=== PATIENT | female | born 1940 | race Caucasian/White ===

== ENCOUNTER 2019-04-22 08:21 | Inpatient (IN) ==
--- NOTE | 2019-04-15 07:49 | ANES ---
Anesthesia Pre Procedure Eval HOME MEDICATIONS Lisinopril [Zestril] 20 mg PO DAILY 11/21/14 [Last Taken 02/27/19 07:41] Aspirin [Aspirin Enteric Coated] 81 mg PO DAILY 08/13/16 [Last Taken 08/26/16] allopurinol 300 mg tablet 300 mg PO DAILY 01/13/19 [Last Taken Unknown] fluticasone furoate 100 mcg-vilanterol 25 mcg/dose inhalation powder 1 inh IH DAILY 01/13/19 [Last Taken Unknown] gabapentin 100 mg capsule 100 mg PO DAILY 01/13/19 [Last Taken Unknown] montelukast 10 mg tablet 10 mg PO DAILY 01/13/19 [Last Taken Unknown] omeprazole 20 mg capsule,delayed release 20 mg PO DAILY 01/13/19 [Last Taken Unknown] Triamterene 50 mg PO DAILY 01/29/19 [Last Taken 01/29/19] Allergies/Adverse Reactions: Allergies Allergy/AdvReac Type Severity Reaction Status Date / Time No Known Allergies Allergy Verified 03/31/19 11:11 - Planned Procedure Planned Procedure: LT Arthroplasty Total Knee Medication List Reviewed:: Yes Allergies Verified: Yes Medical History (Last Reviewed 04/15/19 @ 07:47 by Nakul Belle CRNA) Asthma, intermittent Onset Date: 1995 Breast cancer Onset Date: 2003 and 1998 DVT (deep venous thrombosis) Onset Date: 10/2014 rt Degenerative joint disease of knee Onset Date: 12/20/11 Gastroesophageal reflux Onset Date: Unknown Hypertension Onset Date: 2007 Right knee pain Onset Date: Unknown Seasonal allergies Onset Date: Unknown Surgical History (Last Reviewed 04/15/19 @ 07:47 by Nakul Belle CRNA) H/O bilateral mastectomy Onset Date: 2003 with reconstruction surgery 1998 also H/O colonoscopy Onset Date: Unknown WNL H/O: hysterectomy Onset Date: 1998 S/P left knee arthroscopy Onset Date: 08/2016 and 10/2010 Family History (Last Reviewed 04/15/19 @ 07:47 by Nakul Belle CRNA) Father CHF (congestive heart failure) Mother CHF (congestive heart failure) Sister Breast cancer Brother Liver cancer Diabetes CHF (congestive heart failure) - Family Anesthesia History Family History:: no untoward family reactions to anesthesia - Airway/Neck/Teeth Within Normal Limits:: Yes Denture Type: Full upper, Full lower Neck Exam: limited range of motion Mallampatti Score: 3 Thyromental (T-M) distance: > 6 cm Mandibulo Hyoid distance: > 3 cm - Respiratory Respiratory History: asthma Respiratory Physical: lungs clear Smoking Status: Never smoker Sleep Apnea currently treated: No Sleep Apnea by current assessment: No - Cardiovascular Cardiac History: hypertension Tolerate Activity: Fair Heart Sounds: S1 & S2, Regular - Gastrointestinal NPO since: instructed npo after mn - Anesthesia Assessment and Plan ASA Class: PS, III Anesthesia Type Plan: Spinal - adductor canal block Planned difficult intubation/equipment available: No
[~2019-04-22 08:21] MED LIST: ISOPROPYL ALCOHOL 480 APPL BTL MC ONE; MORPHINE SULFATE 15 MG TABLET.SA PO PRN; ROPIVACAINE HCL/PF 100 MG, EPINEPHrine 0.2 MG, KETOROLAC TROMETHAMINE 30 MG in NORMAL S... IJ PRN; TRANEXAMIC ACID 1,000 MG in NORMAL SALINE 100 ML IV PRN; ceFAZolin SODIUM 1 GM VIAL IV PRN; ceFAZolin SODIUM 1 GM VIAL ONE
[2019-04-22] MEDS ORDERED: BUPIVACAINE HCL/EPINEPHRINE 50 ML VIAL IJ ONE (08:53)
[2019-04-22] MEDS ORDERED: PROPOFOL VIAL IV ONE (08:54)
[2019-04-22] MEDS ORDERED: MIDAZOLAM HCL/PF 5 MG/ML VIAL ONE (08:54)
[2019-04-22] MEDS ORDERED: NORMAL SALINE 20 ML VIAL ONE (08:54)
[2019-04-22] MEDS ORDERED: BUPIVACAINE HCL/PF 10 ML VIAL ONE (08:56)
[2019-04-22] MEDS: RINGER'S SOLUTION,LACTATED 1,000 ML IV PRN ×2 (09:25→10:20)
[2019-04-22] MEDS ORDERED: ZOLPIDEM TARTRATE 5 MG TABLET PO PRN (11:01)
[2019-04-22] MEDS ORDERED: MAG HYDROX/ALUMINUM HYD/SIMETH 30 ML UDC PO PRN (11:01)
[2019-04-22] MEDS ORDERED: ACETAMINOPHEN 500 MG TABLET PO PRN (11:01)
[2019-04-22] MEDS ORDERED: MAGNESIUM HYDROXIDE 30 ML UDC PO PRN (11:01)
[2019-04-22] MEDS ORDERED: diphenhydrAMINE HCL 50 MG/ML VIAL IV PRN (11:01)
[2019-04-22] MEDS ORDERED: ONDANSETRON HCL/PF 2 MG/ML VIAL IV PRN (11:01)
[2019-04-22] MEDS ORDERED: DEXTROSE 5%-LACTATED RINGERS 1,000 ML IV PRN (11:01)
[2019-04-22] MEDS ORDERED: MORPHINE SULFATE 2 MG/ML DISP.SYRIN IV PRN (11:01)
--- NOTE | 2019-04-22 11:05 | OR ---
Operative Report - Dictated Report Narrative: Date: 04/22/2019 Preoperative diagnosis: Left knee degenerative joint disease. Postoperative diagnosis: Left knee degenerative joint disease. Procedure: Left total knee arthroplasty. Surgeon: Abel Bryant M.D. Cigar Maker: Margarito Hart PA-C (provided and essential set of skilled, educated hands that assisted with transfer, positioning, prepping, draping, manipulation, retraction, placement of jigs, injection, insertion of implants, irrigation, closure wounds, and dressings all of which could not be performed by the available surgical crew) Anesthesia: Spinal with regional block and local periarticular joint injection. Complications: None Specimens: Bone. Estimated blood loss: Minimal. Tourniquet time: 80 Minutes at 325 millimeters of mercury. Retained implants: Depuy Attune size 6 narrow left lugged cemented posterior stabilized femoral component. Size 5 fixed-bearing cemented tibial platform. 6 by 6 millimeter posterior stabilized cross-linked tibial insert. 38 millimeter medialized patella button. Indications: Mrs. Coates is a 78-year-old female who has had longstanding left knee pain and arthrosis. This patient was followed in my clinic for period of time with significant complaints of left knee pain consistent with arthritic changes. She had failed conservative measures including, but not limited to, activity modification, passage of time, medications, and other conservative measures. Patient wished to proceed with surgical treatment. The risks, benefits, and alternatives were discussed in clinic. The risks of , blood clots, bleeding, infection, nerve/tendon blood vessel/ injury, malposition of components, intraoperative fracture, postoperative limited range of motion, persistent pain, failure of components, and need for additional procedures. Patient wished to proceed consent was obtained after answering all questions. Procedure: After marking the correct extremity on the floor, the patient was taken to the operating room. A timeout was performed. IV antibiotics consisting of Ancef were administered prior to the procedure. A regional followed by spinal anesthetic was induced by anesthesia, per my request, on the operative table with all bony prominences well-padded. Cifuentes catheter was placed, and a bump was placed under the operative side buttock. SCDs and SALMA hose were utilized on the nonoperative leg. A well-padded tourniquet was applied to the operative thigh. The operative leg was then pre-scrubbed with alcohol, prepped, and draped in a standard sterile fashion. After exsanguinating the extremity with an Esmarch bandage, the tourniquet was inflated. After marking out the anterior knee for standard incision centered over the patella, the skin was incised and dissected down to the joint retinaculum. The joint retinaculum was marked out as well as the horizontal axis of the patella, and a standard medial parapatellar arthrotomy was then made. The most proximal aspect of the quadriceps tendon and the patella tendon insertion were protected from release. A partial synovectomy was performed as well as a resection of the infrapatellar fat pad. The distal femoral fat pad proximal to the trochlea was also resected using cautery. The soft tissues were elevated off the medial as pect of the proximal tibia using a Holman elevator ensuring that we did not transect the medial collateral ligament. Upon initial evaluation range of motion was approximately 0 degrees to 130 degrees of flexion. There were signs of advanced arthrosis in the medial and patellofemoral greater than lateral joint spaces. There were large marginal osteophytes which were removed with a rongeur. The knee was hyperflexed and the patella was tucked laterally. Protecting the surrounding soft tissues with Homans, an entry drill was placed down the femoral canal using Whitesides line for guidance into the entry point. The intramedullary femoral alignment elida was utilized in order to cut the distal femur in 5 degrees of valgus resecting 10 millimeters of bone. Next the distal femur was sized to a size 6. A posterior referencing guide was utilized to place the distal femoral cutting block in 3 degrees of external rotation. This was pinned into place. The rotation was confirmed both visually and based on anatomic landmarks. The 4 in 1 cutting jig of the appropriate size was utilized in order to make all bony cuts. The arabella wing was used to ensure no notching. Retractors were utilized in order to protect surrounding soft tissues. This cut did not result in any excessive notching. We then cut the box centered over the distal femur. This allowed for resection of the anterior and posterior cruciate ligaments. I then turned my attention to the preparation of the tibia. Using an extra medullary tibial alignment elida, 3 millimeters of bone was resected off the medial articular surface. This was made perpendicular to the mechanical axis of the joint with the alignment elida centered over the ankle mortise. The alignment elida was checked and was noted to be parallel to the mec hanical axis, centered over the medial one third of the tibial tubercle, paralleling the anterior surface of the tibia. We then turned our attention to the remaining meniscus and soft tissues. These were removed while protecting the surrounding ligaments and soft tissues. The marginal osteophytes off the anterior, posterior, medial, lateral aspects of the femur and tibia were removed. The tibia was sized out to a size 5. Next the tibia was drilled and punched in an externally rotated position. Next the trial femur and a series of tibial inserts were utilized in order to allow for full extension and maximal flexion. It was found that a 6 millimeter insert gave the best range of motion and stability at multiple flexion points as well as at full extension there was less than 2 mm of gapping both medially and laterally. There is minimal anterior translation with the knee at 90 degrees of flexion and no signs of being able to dislocate the knee. The patella was then prepared. The initial thickness was 25 millimeters. This was reamed down to 15 millimeters parallel to the anterior surface of the patella. It was sized out to a size 38 medialized patella button. This was then drilled and trialed. Without any medial restraint the patella tracked appropriately and did not sublux or dislocate. At this point, it was felt these were the appropriate sized implants, and all trials were removed. The standard periarticular joint injection consisting of ropivacaine, Toradol, and epinephrine were injected into the periarticular joint tissues. The bony surfaces were thoroughly irrigated with a pulsatile-suction saline irrigation device. A bone plug from the prior resected anterior chamfer cut was placed into the drill hole at the distal femur. The bony surfaces were then dried in preparation for placement of the implants. The cement was vacuum mixed per the counter manager's instructions. The cement was placed on the dry bony surfaces and posterior aspect of the implants. The implants were impacted into place, removing all extruded cement. At this point anesthesia administered tranexamic acid per protocol intravenously. The knee was placed in extension with axial loading with the trial insert while the cement cured. Once the cement cured, all remaining extruded cement was removed. The knee was placed through a range of motion with the trial insert to ensure appropriate range of motion and stability. Final range of motion was approximately 0 to 130 degrees. The knee was again thoroughly irrigated with pulsatile saline lavage. The final polyethylene insert was then impacted into place ensuring no retained soft tissues. The remaining periarticular joint injection was injected. A medium Hemovac drain was placed exiting superior laterally. The knee was then placed over a triangle and the arthrotomy was closed with interrupted #1 Vicryl after thoroughly irrigating the joint. The deep and subcutaneous tissues were closed with interrupted 0 and 3-0 Vicryl respectively. Skin was closed with a running subcutaneous 3-0 Monocryl and Prineo Dermabond dressing. 4 x 4's, Sof-Rol, and a full leg Vargas wrap were applied. All sponge, needle, blade, and instrument counts were correct prior to closing the wounds. Postoperative condition: The patient was awoken and transferred to the postanesthesia care unit in stable condition. Plan is to be admitted to the inpatient medical/surgical floor postoperatively for 24 hours of IV antibiotics, physical therapy, occupational therapy, and medical comanagement. Patient will be weightbearing as tolerated with range of motion as tolerated. DVT prophylaxis will be with SCDs, SALMA hose, and pharmacological anticoagulation. Anticipated hospital stay is approximately 1-3 days.
--- NOTE | 2019-04-22 11:26 | ANES ---
Post Anesthesia Discharge - Transfer of Care Transfer of Care handoff given to nurse: Yes - Discharge from PACU Discharge from PACU when meets criteria: Yes
--- NOTE | 2019-04-22 11:30 | ANES ---
Anesthesia Procedure Note Procedure Note: ANESTHESIA PROCEDURE NOTE Date of procedure: 04/22/2019. Time of procedure: 09 35. Performed by: Faustino Belle CRNA Watch Repairer Apprentice: Abigail Aguirre RN . Preprocedure diagnosis: Left knee DJD. Post procedure diagnosis: Same. Procedure: Ultrasound-guided left adductor canal block for postoperative anal gesia Indications: Postoperative analgesia. Findings: Patient brought to operating room #3, sedated, and given a spinal anesthetic. Patient's left inner thigh was prepped with ChloraPrep. Ultrasound utilized to identify the adductor canal. A 20-gauge 4 inch regional block needle was advanced under ultrasound guidance till tip of needle was placed in the adductor canal and just distal to the sartorius muscle. 25 mL of 0.25% Marcaine with epinephrine 1 200,000 was injected with adequate spread of local anesthesia noted. Regional block needle was removed intact. EBL: Minimal. Fluids: N/A. Specimen: N/A. Post procedure condition: The patient tolerated the procedure well. No complications were noted. Thank you for this consultation Faustino Belle CRNA
--- NOTE | 2019-04-22 11:57 | ANES ---
Post Anesthesia Assessment - Vital Signs Vitals: Last Vital Signs Temp 36.6 C 04/22/19 11:35 Pulse 97 04/22/19 11:35 Resp 18 04/22/19 11:35 BP 123/43 04/22/19 11:35 Pulse Ox 97 04/22/19 11:35 Airway Patency: Normal - Mental Status Level Of Consciousness: Awake - Pain Level Pain Score: 0 - N/V Assessment Nausea/Vomiting Presence: None Dehydration:: No
[2019-04-22] MEDS: ceFAZolin SODIUM 1 GM in DEXTROSE 5 % IN WATER 100 ML IV SCH ×4 (13:05→19:39)
[2019-04-22] MEDS: oxyCODONE HCL/ACETAMINOPHEN 1 TAB TABLET PO PRN ×2 (16:06→22:35)
[2019-04-22] MEDS: FLUTICASONE PROPION/SALMETEROL 14 PUFF DISK.W.DEV IH SCH (20:16)
[2019-04-22] MEDS: SENNOSIDES/DOCUSATE SODIUM 1 TAB TABLET PO SCH (20:16)
[2019-04-22] MEDS: MORPHINE SULFATE 15 MG TABLET.SA PO SCH (20:19)
[2019-04-23] MEDS: ceFAZolin SODIUM 1 GM in DEXTROSE 5 % IN WATER 100 ML IV SCH ×2 (01:23)
[2019-04-23] MEDS: oxyCODONE HCL/ACETAMINOPHEN 1 TAB TABLET PO PRN ×3 (04:46→20:24)
[2019-04-23] MEDS: PANTOPRAZOLE SODIUM 20 MG TABLET.DR PO SCH (06:25)
[2019-04-23 06:31] LABS: Hematocrit 31.7 % (37.0-47.0); Hemoglobin 9.8 gm/dL (12.5-16.0); Mean Cell Volume 97.8 fl (78-100); Mean Corpuscular Hemoglobin 30.2 pg (27-31); Mean Corpuscular Hgb Conc 30.9 g/dl (32-36); Mean Platelet Volume 9.7 fl (8-12.5); Platelet Count 252 K/mm3 (150-450); Red Blood Count 3.24 M/mm3 (4.2-5.4); Red Cell Distribution Width 13.2 % (11.5-14.0); White Blood Count 6.4 K/mm3 (4.0-10.5)
[2019-04-23 06:39] LABS: Anion Gap 13.3 mmol/L (6.8-13.8); BUN/Creatinine Ratio 25.5 (9.0-21.6); Carbon Dioxide 27.2 mmol/L (24-32.6); Estimated Creat Clear 27.8; Potassium 4.5 mmol/L (3.4-4.6)
[2019-04-23] MEDS: LISINOPRIL 20 MG TABLET PO SCH (09:48)
[2019-04-23] MEDS: MONTELUKAST SODIUM 10 MG TABLET PO SCH (09:49)
[2019-04-23] MEDS: ALLOPURINOL 300 MG TABLET PO SCH (09:49)
[2019-04-23] MEDS: GABAPENTIN 100 MG CAPSULE PO SCH (09:49)
[2019-04-23] MEDS: MORPHINE SULFATE 15 MG TABLET.SA PO SCH ×2 (09:49→20:19)
[2019-04-23] MEDS: ENOXAPARIN SODIUM 40 MG/0.4 ML SYRG SC SCH (09:49)
[2019-04-23] MEDS: TRIAMTERENE 50 MG PO SCH (09:50)
[2019-04-23] MEDS: FLUTICASONE PROPION/SALMETEROL 14 PUFF DISK.W.DEV IH SCH ×2 (09:50→20:13)
--- NOTE | 2019-04-23 18:09 | PN ---
Subjective - Date and Time Seen Date: 04/23/19 Time: 07:45 Subjective Narrative: Subjective: Reports tolerable pain. Was able to walk in the jensen with therapy. Pain is well-controlled. Voiding without any complications. Tolerating by mouth intake. Denies any nausea or vomiting. Denies calf pain. Slept well. Physical exam: Alert and oriented to person, place and time Left lower extremity: Palpable dorsalis pedis pulse. Sensation grossly intact to light touch. Dressings clean and dry. Able to flex and extend ankle and toes. No excessive drainage. Calf and thigh are soft and nontender. Assessment: Postop day 1 status post left total knee arthroplasty. Plan: Due to the need for pain control, post-operative limited mobility, protection of the surgical site and joint, monitoring of the wound, and the management of chronic medical conditions, she requires continued inpatient care. Continue with physical and occupational therapy weightbearing as tolerated. Continue with anticoagulation. 24 hours postoperative prophylactic antibiotics. Pain co ntrol with goal to rely on oral medications. Continue bowel regimen. Will need 6 weeks with walker or assitive device to protect joint while ambulating during the recovery process. Discharge planning. Discontinue drain and Cifuentes catheter. Objective - Vitals Vitals: Last Vital Signs Temp 36.9 C 04/23/19 13:52 Pulse 95 04/23/19 13:52 Resp 18 04/23/19 13:52 BP 129/62 04/23/19 13:52 Pulse Ox 98 04/23/19 13:52 - Abnormal Lab Findings Abnormal Lab Findings: Abnormal Lab Results 04/23/19 04/23/19 Range/Units 06:28 06:28 RBC 3.24 L (4.2-5.4) M/mm3 Hgb 9.8 L (12.5-16.0) gm/dL Hct 31.7 L (37.0-47.0) % MCHC 30.9 L (32-36) g/dl BUN 37 H (3-23) mg/dL Creatinine 1.45 H (0.4-1.4) mg/dL Est GFR (Non-Af Amer) 37 L (60-130) mL/min BUN/Creatinine Ratio 25.5 H (9.0-21.6) Random Glucose 122 H (70-110) mg/dL Cauti Physician Documentation - Urinary Catheter Management Urethral (Cifuentes) Date of Insertion: 04/22/19 Time of Insertion: 09:45 Date of Removal: 04/23/19 Time of Removal: 06:30 Assessment/Plan - Problems/Diagnosis (1) Status post total left knee replacement Problem: Acute (2) Acute blood loss anemia Problem: Acute (3) HTN (hypertension) Problem: Chronic (4) Hyperlipemia Problem: Chronic (5) GERD (gastroesophageal reflux disease) Problem: Chronic (6) Insomnia Problem: Chronic (7) Gout Problem: Chronic
[2019-04-23] MEDS: SENNOSIDES/DOCUSATE SODIUM 1 TAB TABLET PO SCH (20:13)
[2019-04-24] MEDS: oxyCODONE HCL/ACETAMINOPHEN 1 TAB TABLET PO PRN ×3 (04:55→20:24)
[2019-04-24] MEDS: PANTOPRAZOLE SODIUM 20 MG TABLET.DR PO SCH (06:58)
[2019-04-24] MEDS: GABAPENTIN 100 MG CAPSULE PO SCH (09:30)
[2019-04-24] MEDS: ALLOPURINOL 300 MG TABLET PO SCH (09:30)
[2019-04-24] MEDS: LISINOPRIL 20 MG TABLET PO SCH (09:30)
[2019-04-24] MEDS: MONTELUKAST SODIUM 10 MG TABLET PO SCH (09:30)
[2019-04-24] MEDS: MORPHINE SULFATE 15 MG TABLET.SA PO SCH ×2 (09:31→21:25)
[2019-04-24] MEDS: ENOXAPARIN SODIUM 40 MG/0.4 ML SYRG SC SCH (09:31)
[2019-04-24] MEDS: FLUTICASONE PROPION/SALMETEROL 14 PUFF DISK.W.DEV IH SCH ×2 (09:31→21:25)
[2019-04-24] MEDS: TRIAMTERENE 50 MG PO SCH (09:37)
--- NOTE | 2019-04-24 09:40 | PN ---
Subjective - Date and Time Seen Date: 04/24/19 Time: 09:39 Subjective Narrative: Subjective: Reports tolerable pain. Was able to walk in the jensen with therapy. Voiding without any complications. Tolerating by mouth intake. Denies any nausea or vomiting. Physical exam: Alert and oriented to person, place and time Left lower extremity: Palpable dorsalis pedis pulse. Sensation grossly intact to light touch. Able to flex and extend ankle and toes. No excessive drainage. Calf and thigh are soft and nontender. Assessment: Postop day 2 status post left total knee arthroplasty. Plan: Due to the need for pain control, post-operative limited mobility, protection of the surgical site and joint, monitoring of the wound, and the management of chronic medical conditions, she requires continued inpatient care. Continue with physical and occupational therapy weightbearing as tolerated. Continue with anticoagulation. Pain control with goal to rely on oral medications. Continue bowel regimen. Will need 6 weeks with walker or assitive device to protect joint while ambulating during the recovery process. Discharge planning- due to her home living situation as well as the need for additional specialized therapy she is being transferred to a [facility] facility tomorrow. Objective - Vitals Vitals: Last Vital Signs Temp 37.2 C 04/24/19 07:17 Pulse 90 04/24/19 09:30 Resp 16 04/24/19 07:17 BP 124/73 04/24/19 09:30 Pulse Ox 99 04/24/19 07:17 Cauti Physician Documentation - Urinary Catheter Management Urethral (Cifuentes) Date of Insertion: 04/22/19 Time of Insertion: 09:45 Date of Removal: 04/23/19 Time of Removal: 06:30 Assessment/Plan - Problems/Diagnosis (1) Status post total left knee replacement Problem: Acute (2) Acute blood loss anemia Problem: Acute (3) HTN (hypertension) Problem: Chronic (4) Hyperlipemia Problem: Chronic (5) GERD (gastroesophageal reflux disease) Problem: Chronic (6) Insomnia Problem: Chronic (7) Gout Problem: Chronic
[2019-04-24] MEDS: SENNOSIDES/DOCUSATE SODIUM 1 TAB TABLET PO SCH (21:25)
[2019-04-25] MEDS: oxyCODONE HCL/ACETAMINOPHEN 1 TAB TABLET PO PRN ×2 (03:05→10:10)
[2019-04-25] MEDS: PANTOPRAZOLE SODIUM 20 MG TABLET.DR PO SCH (06:47)
[2019-04-25] MEDS: MORPHINE SULFATE 15 MG TABLET.SA PO SCH (08:29)
[2019-04-25] MEDS: FLUTICASONE PROPION/SALMETEROL 14 PUFF DISK.W.DEV IH SCH (08:29)
[2019-04-25] MEDS: GABAPENTIN 100 MG CAPSULE PO SCH (08:30)
[2019-04-25] MEDS: TRIAMTERENE 50 MG PO SCH (08:30)
[2019-04-25] MEDS: ALLOPURINOL 300 MG TABLET PO SCH (08:30)
[2019-04-25] MEDS: LISINOPRIL 20 MG TABLET PO SCH (08:30)
[2019-04-25] MEDS: MONTELUKAST SODIUM 10 MG TABLET PO SCH (08:30)
--- NOTE | 2019-04-25 08:48 | DS ---
(1) Status post total left knee replacement Problem: Acute (2) Acute blood loss anemia Diagnosis(s): Acute on chronic. Patient's hemoglobin preoperatively was 10.6 g postoperatively on day 1 9.8 g. Asymptomatic and will observe clinically. Problem: Acute (3) HTN (hypertension) Problem: Chronic (4) Hyperlipemia Problem: Chronic (5) GERD (gastroesophageal reflux disease) Problem: Chronic Date of Discharge:: 04/25/19 Hospital Course: Mrs. Coates was admitted to the floor after undergoing left total knee arthroplasty. Tolerated this well. Was admitted to the floor postoperatively for 24 hours of IV antibiotics, pain control, medical comanagement, and occupational and physical therapy. OT and PT were consulted to assist with activities of daily living and ambulation. Was made weightbearing as tolerated with range of motion as tolerated. Pain was initially controlled with IV regimen. This was transitioned to oral once tolerating a by mouth intake. Was resumed on home diet and medications. Had a Cifuentes catheter inserted and the operating room which was discontinued on postoperative day 1. A drain was placed intraoperatively into the knee which was discontinued on postoperative day 1. Lovenox SCD and SALMA hose were utilized for DVT prophylaxis. Vital signs remained stable to the hospital course. Serial labs were obtained which showed a final hemoglobin of 9.8 grams down from preoperative 10.6 g. Her anemia is asymptomatic and will continue to observe clinically. BMP was reviewed and was stable. Physical examination throughout the hospital course showed an extremity that had sensation that was intact to light touch, palpable pulses, a benign wound, motor intact to the toes, ankle, and knee. Knee range of motion was approximately 5 degrees to 70 degrees. Once an oral pain regimen was tolerated and physical therapy goals were met, it was felt that they were stable for discharge to home. Instructions: Continue with weightbearing as tolerated and range of motion as tolerated. It is OK to shower on the wound if it is not draining. If you note any drainage or for comfort you can cover with dry gauze and tape. Change every 2-3 days as needed. Continue with physical therapy. Resume home diet. Report any fever over 101.5 Fahrenheit, uncontrolled pain, increased drainage, foul odor of drainage, new or increased calf pain or shortness of breath, or any other significant complaints. A 325mg dialy aspirin will be started after finishing anticoagulation if not allergic. Continue with SALMA hose on the operative extremity until instructed otherwise. No driving until instructed otherwise. Follow up in approximately 10-14 days. Procedures Performed: see notes below List Procedures: Left total knee arthroplasty Results and Findings: Lab Pending Results 04/23/19 06:28: WBC 6.4, RBC 3.24 L, Hgb 9.8 L, Hct 31.7 L, MCV 97.8, MCH 30.2, MCHC 30.9 L, RDW 13.2, Plt Count 252, MPV 9.7 04/23/19 06:28: Sodium 139, Plasma Sodium 139, Potassium 4.5, Chloride 103, Carbon Dioxide 27.2, Anion Gap 13.3, BUN 37 H, Creatinine 1.45 H, Est GFR (Non- Af Amer) 37 L, BUN/Creatinine Ratio 25.5 H, Random Glucose 122 H, Calcium 9.0 Discharge Location: [facility] Disposition: SNF Condition: Good Discharge Activity: Activity as tolerated, Weight bearing, Other - With wheeled walker Discharge Diet: Low salt [facility] Therapy: Physical Therapy Referrals: Dr. Edd [Other] Abel Bryant MD [Staff Physician] - 05/12/19 1:15 pm Problem Oriented Discharge Instructions to Patient/Family: Total Knee R eplacement, Care After, [id number] Additional Patient Instructions (free text): Pt going to [facility] in [place] at discharge on Saturday04/25/19. Please call them to give report at [phone]. Fax # for discharge information is [phone]. Follow up in the Orthopedic office with Dr. Bryant on SaturdayMay 11 at 1:15p.m. Complete Home Medications List: Complete Home Medication List: Lisinopril [Zestril] 20 mg PO DAILY 11/21/14 Aspirin [Aspirin Enteric Coated] 81 mg PO DAILY 08/13/16 allopurinol 300 mg tablet 300 mg PO DAILY 01/13/19 fluticasone furoate 100 mcg-vilanterol 25 mcg/dose inhalation powder 1 inh IH DAILY 01/13/19 gabapentin 100 mg capsule 100 mg PO DAILY 01/13/19 montelukast 10 mg tablet 10 mg PO DAILY 01/13/19 omeprazole 20 mg capsule,delayed release 20 mg PO DAILY 01/13/19 Triamterene 50 mg PO DAILY 01/29/19 Enoxaparin Sodium [Lovenox] 40 mg SC Q24H #5 disp.syrin 04/25/19 Morphine Sulfate [Ms Contin] 15 mg PO Q12H #10 tablet.sa 04/25/19 Sennosides/Docusate Sodium [Senokot-S] 2 tab PO HS #30 tab 04/25/19 oxyCODONE HCL/ACETAMINOPHEN [Percocet 5 MG/325 MG] 2 tab PO Q4H PRN #56 tab 04/25/19
[2019-04-25] MEDS: ENOXAPARIN SODIUM 40 MG/0.4 ML SYRG SC SCH (10:08)
[2019-04-25 11:24] VITALS: BP 113/80
== END 2019-04-25 11:20 | DRG 470 ==
LOC: MS 08:21 → EDSTATUS 11:30
PROVIDERS: ADMIT Orthopaedic Surgery; ATTEND Orthopaedic Surgery
DX: E78.5 Hyperlipidemia, unspecified; D62 Acute posthemorrhagic anemia; K21.9 Gastro-esophageal reflux disease without esophagitis; M17.12 Unilateral primary osteoarthritis, left knee; I10 Essential (primary) hypertension; J45.30 Mild persistent asthma, uncomplicated
CPT/HCPCS: 36415; 73560; 80048; 85027; 94660; 97110; 97116; 97161; 97165; 97530; 97535

== ENCOUNTER 2019-07-27 06:26 | Inpatient (IN) ==
[~2019-07-27 06:26] MED LIST changes: -ISOPROPYL ALCOHOL 480 APPL BTL MC ONE; -ceFAZolin SODIUM 1 GM VIAL ONE
[2019-07-27] MEDS ORDERED: ceFAZolin SODIUM 1 GM VIAL ONE (06:31)
[2019-07-27] MEDS ORDERED: MIDAZOLAM HCL/PF 1 MG/ML VIAL ONE (06:35)
[2019-07-27] MEDS ORDERED: BUPIVACAINE HCL/EPINEPHRINE/PF 30 ML VIAL IJ ONE (06:35)
[2019-07-27] MEDS ORDERED: PROPOFOL VIAL IV ONE (06:35)
[2019-07-27] MEDS ORDERED: CEFAZOLIN SODIUM/DEXTROSE,ISO 1 GM/50 ML BAG IV PRN (06:38)
--- NOTE | 2019-07-27 07:13 | ANES ---
Anesthesia Pre Procedure Eval Vitals/Labs: Last Vital Signs Temp 36.5 C 07/27/19 06:29 Pulse 75 07/27/19 06:29 Resp 16 07/27/19 06:29 BP 159/69 H 07/27/19 06:29 HOME MEDICATIONS Lisinopril [Zestril] 20 mg PO DAILY 11/21/14 [Last Taken 07/27/19] Aspirin [Aspirin Enteric Coated] 81 mg PO DAILY 08/13/16 [Last Taken 07/27/19] allopurinol 300 mg tablet 300 mg PO DAILY 01/13/19 [Last Taken 07/27/19] fluticasone furoate 100 mcg-vilanterol 25 mcg/dose inhalation powder 1 inh IH DAILY 01/13/19 [Last Taken 07/27/19] gabapentin 100 mg capsule 100 mg PO DAILY 01/13/19 [Last Taken 07/27/19] montelukast 10 mg tablet 10 mg PO DAILY 01/13/19 [Last Taken 07/27/19] omeprazole 20 mg capsule,delayed release 20 mg PO DAILY 01/13/19 [Last Taken 07/27/19] Allergies/Adverse Reactions: Allergies Allergy/AdvReac Type Severity Reaction Status Date / Time No Known Allergies Allergy Verified 07/27/19 06:46 - Planned Procedure Planned Procedure: R TKA Medication List Reviewed:: Yes Allergies Verified: Yes Medical History (Last Reviewed 07/27/19 @ 07:11 by Robel Dietz CRNA) Asthma, intermittent Onset Date: 1995 Breast cancer Onset Date: 2003 and 1998 Cyst of left kidney being monitored with imaging at this time DVT (deep venous thrombosis) Onset Date: 10/2014 rt Degenerative joint disease of knee Onset Date: 12/20/11 Gastroesophageal reflux Onset Date: Unknown Gout Hypertension Onset Date: 2007 Right knee pain Onset Date: Unknown Seasonal allergies Onset Date: Unknown Wears dentures Surgical History (Last Reviewed 07/27/19 @ 07:11 by Robel Dietz CRNA) H/O bilateral mastectomy Onset Date: 2003 with reconstruction surgery 1998 also H/O colonoscopy Onset Date: Unknown WNL H/O: hysterectomy Onset Date: 1998 History of total knee arthroplasty Onset Date: ~04/22/19 Procedure: Left total knee arthroplasty. Dr. Bryant S/P left knee arthroscopy Onset Date: 08/2016 and 10/2010 Family History (Last Reviewed 07/27/19 @ 07:11 by Robel Dietz CRNA) Father CHF (congestive heart failure) Mother CHF (congestive heart failure) Sister Breast cancer Brother Liver cancer Diabetes CHF (congestive heart failure) Daughter Stomach cancer - Family Anesthesia History Family History:: no untoward family reactions to anesthesia, no familial bleeding tendencies, no family history of clotting disorders, no family history of premature - Airway/Neck/Teeth Within Normal Limits:: Yes Teeth Condition: intact Neck Exam: full range of motion Mallampatti Score: 2 Thyromental (T-M) distance: > 6 cm Mandibulo Hyoid distance: > 3 cm - Respiratory Respiratory Physical: lungs clear Smoking Status: Never smoker Sleep Apnea currently treated: No Sleep Apnea by current assessment: No - Cardiovascular Cardiac History: hypertension Tolerate Activity: Poor - currently with walker Heart Sounds: S1 & S2 - Gastrointestinal NPO since: 2399 - Anesthesia Assessment and Plan ASA Class: PS, III Anesthesia Type Plan: Block - adductor canal block for post op pain relief, Spinal
[2019-07-27] MEDS: RINGER'S SOLUTION,LACTATED 1,000 ML IV PRN ×2 (07:30→08:35)
[2019-07-27] MEDS ORDERED: ceFAZolin SODIUM 1 GM VIAL IV ONE (08:00)
--- NOTE | 2019-07-27 09:50 | OR ---
Operative Report - Dictated Report Narrative: Date: 07/27/2019 Preoperative diagnosis: Right knee degenerative joint disease. Postoperative diagnosis: Right knee degenerative joint disease. Procedure: Right total knee arthroplasty. Surgeon: Abel Bryant M.D. Service Cashier: Margarito Hart PA-C (provided and essential set of skilled, educated hands that assisted with transfer, positioning, prepping, draping, manipulation, retraction, placement of jigs, injection, insertion of implants, irrigation, closure wounds, and dressings all of which could not be performed by the available surgical crew) Anesthesia: Spinal with regional block and local periarticular joint injection. Complications: None Specimens: Bone. Estimated blood loss: Minimal. Tourniquet time: 85 Minutes at 300 millimeters of mercury. Retained implants: Depuy Attune size 6 narrow right lugged cemented posterior stabilized femoral component. Size 5 fixed-bearing cemented tibial platform. 6 by 8 millimeter posterior stabilized cross-linked tibial insert. 38 millimeter medialized patella button. Indications: Mrs. Coates is a 78-year-old female who has had longstanding right knee pain and arthrosis. This patient was followed in my clinic for period of time with significant complaints of right knee pain consistent with arthritic changes. She had failed conservative measures including, but not limited to, activity modification, passage of time, medications, and other conservative measures. Patient wished to proceed with surgical treatment. The risks, benefits, and alternatives were discussed in clinic. The risks of , blood clots, bleeding, infection, nerve/tendon blood vessel/ injury, malposition of components, intraoperative fracture, postoperative limited range of motion, persistent pain, failure of components, and need for additional procedures. Patient wished to proceed consent was obtained after answering all questions. Procedure: After marking the correct extremity on the floor, the patient was taken to the operating room. A timeout was performed. IV antibiotics consisting of Ancef were administered prior to the procedure. A regional followed by spinal anesthetic was induced by anesthesia, per my request, on the operative table with all bony prominences well-padded. Cifuentes catheter was placed, and a bump was placed under the operative side buttock. SCDs and SALMA hose were utilized on the nonoperative leg. A well-padded tourniquet was applied to the operative thigh. The operative leg was then pre-scrubbed with alcohol, prepped, and draped in a standard sterile fashion. After exsanguinating the extremity with an Esmarch bandage, the tourniquet was inflated. After marking out the anterior knee for standard incision centered over the patella, the skin was incised and dissected down to the joint retinaculum. The joint retinaculum was marked out as well as the horizontal axis of the patella, and a standard medial parapatellar arthrotomy was then made. The most proximal aspect of the quadriceps tendon and the patella tendon insertion were protected from release. A partial synovectomy was performed as well as a resection of the infrapatellar fat pad. The distal femoral fat pad proximal to the trochlea was also resected using cautery. The soft tissues were elevated off the medial aspect of the proximal tibia using a Holman elevator ensuring that we did not transect the medial collateral ligament. Upon initial evaluation range of motion was approximately 0 degrees to 115 degrees of flexion. There were signs of advanced arthrosis in the medial, lateral, and patellofemoral joint spaces. There were large marginal osteophytes which were removed with a rongeur. The knee was hyperflexed and the patella was tucked laterally. Protecting the surrounding soft tissues with Homans, an entry drill was placed down the femoral canal using Whitesides line for guidance into the entry point. The intramedullary femoral alignment elida was utilized in order to cut the distal femur in 5 degrees of valgus resecting 10 millimeters of bone. Next the distal femur was sized to a size 6. A posterior referencing guide was utilized to place the distal femoral cutting block in 3 degrees of external rotation. This was pinned into place. The rotation was confirmed both visually and based on anatomic landmarks. The 4 in 1 cutting jig of the appropriate size was utilized in order to make all bony cuts. The arabella wing was used to ensure no notching. Retractors were utilized in order to protect surrounding soft tissues. This cut did not result in any excessive notching. We then cut the box centered over the distal femur. This allowed for resection of the anterior and posterior cruciate ligaments. I then turned my attention to the preparation of the tibia. Using an extra medullary tibial alignment elida, 2 millimeters of bone was resected off the medial articular surface. This was made perpendicular to the mechanical axis of the joint with the alignment elida centered over the ankle mortise. The alignment elida was checked and was noted to be parallel to the mechanical axis, centered over the medial one third of the tibial tubercle, paralleling the anterior surface of the tibia. We then turned our attention to the remaining meniscus and soft tissues. These were removed while protecting the surrounding ligaments and soft tissues. The marginal osteophytes off the anterior, posterior, medial, lateral aspects of the femur and tibia were removed. The tibia was sized out to a size 5. Next the tibia was drilled and punched in an externally rotated position. Next the trial femur and a series of tibial inserts were utilized in order to allow for full extension and maximal flexion. It was found that a 8 millimeter insert gave the best range of motion and stability at multiple flexion points as well as at full extension there was less than 2 mm of gapping both medially and laterally. There is minimal anterior translation with the knee at 90 degrees of flexion and no signs of being able to dislocate the knee. The patella was then prepared. The initial thickness was 24 millimeters. This was reamed down to 14 millimeters parallel to the anterior surface of the patella. It was sized out to a size 38 medialized patella button. This was then drilled and trialed. Without any medial restraint the patella tracked appropriately and did not sublux or dislocate. At this point, it was felt these were the appropriate sized implants, and all trials were removed. The standard periarticular joint injection consisting of ropivacaine, Toradol, and epinephrine were injected into the periarticular joint tissues. The bony surfaces were thoroughly irrigated with a pulsatile-suction saline irrigation device. A bone plug from the prior resected anterior chamfer cut was placed into the drill hole at the distal femur. The bony surfaces were then dried in preparation for placement of the implants. The cement was vacuum mixed per the help aid's instructions. The cement was placed on the dry bony surfaces and posterior aspect of the implants. The implants were impacted into place, removing all extruded cement. At this point anesthesia administered tranexamic acid per protocol intravenously. The knee was placed in extension with axial loading with the trial insert while the cement cured. Once the cement cured, all remaining extruded cement was removed. The knee was placed through a range of motion with the trial insert to ensure appropriate range of motion and stability. Final range of motion was approximately 0 to 120 degrees. The knee was again thoroughly irrigated with pulsatile saline lavage. The final polyethylene insert was then impacted into place ensuring no retained soft tissues. The remaining periarticular joint injection was injected. A medium Hemovac drain was placed exiting superior laterally. The knee was then placed over a triangle and the arthrotomy was closed with interrupted #1 Vicryl after thoroughly irrigating the joint. The deep and subcutaneous tissues were closed with interrupted 0 and 3-0 Vicryl respectively. Skin was closed with a running subcutaneous 3-0 Monocryl and Prineo Dermabond dressing. 4 x 4's, Sof-Rol, and a full leg Vargas wrap were applied. All sponge, needle, blade, and instrument counts were correct prior to closing the wounds. Postoperative condition: The patient was awoken and transferred to the postanesthesia care unit in stable condition. Plan is to be admitted to the inpatient medical/surgical floor postoperatively for 24 hours of IV antibiotics, physical therapy, occupational therapy, and medical comanagement. Patient will be weightbearing as tolerated with range of motion as tolerated. DVT prophylaxis will be with SCDs, SALMA hose, and pharmacological anticoagulation. Anticipated hospital stay is approximately 1-3 days.
[2019-07-27] MEDS ORDERED: ONDANSETRON HCL/PF 2 MG/ML VIAL IV PRN (10:01)
[2019-07-27] MEDS ORDERED: MAGNESIUM HYDROXIDE 30 ML UDC PO PRN (10:01)
[2019-07-27] MEDS ORDERED: diphenhydrAMINE HCL 50 MG/ML VIAL IV PRN (10:01)
[2019-07-27] MEDS ORDERED: MAG HYDROX/ALUMINUM HYD/SIMETH 30 ML UDC PO PRN (10:01)
[2019-07-27] MEDS ORDERED: ZOLPIDEM TARTRATE 5 MG TABLET PO PRN (10:01)
[2019-07-27] MEDS ORDERED: ACETAMINOPHEN 500 MG TABLET PO PRN (10:01)
--- NOTE | 2019-07-27 10:04 | ANES ---
Post Anesthesia Discharge - Transfer of Care Transfer of Care handoff given to nurse: Yes - Discharge from PACU Discharge from PACU when meets criteria: Yes - Alert and comfortable
--- NOTE | 2019-07-27 10:06 | ANES ---
Anesthesia Procedure Note Procedure Note: ANESTHESIA PROCEDURE NOTE Date of Procedure: 07/27/2019 Time of procedure: 7:50 AM. Performed by: HERBER Hernadez CRNA, MSN Public Policy Professor: Abigail Aguirre RN. Preprocedure diagnosis: Post right total knee arthroplasty pain. Post procedure diagnosis: Same. Procedure: Right adductor Canal Block. Indications: Post right total knee arthroplasty pain relief. Findings: See below. Details of the procedure: The patient was brought to OR #4 and placed in supine position. The patient's right femoral area to the knee was prepped with chlorhexidine and using ultrasound guidance the right femoral artery and nerve was identified and then followed to the level of the adductor canal. Lidocaine 1% was infiltrated to the skin of the intended injection site. Under ultrasound guidance the saphenous nerve was approached with visualization of a 4 inch shielded block needle. Once saphenous nerve was identified with proximity to the needle tip, the saphenous nerve was surrounded with 30 mL bupivacaine 0.5% with 1-200,000 epinephrine. Please see radiology/ultrasound report for details and retained images of the procedure. EBL: 0 Fluids: N/A. Specimen: N/A. Post procedure condition: The patient tolerated the procedure well. No complications were noted. Thank you for this consultation. Robel Dietz CRNA, ARNP, MSN
[2019-07-27] MEDS ORDERED: KETOROLAC TROMETHAMINE 15 MG/ML VIAL IV SCH (10:15)
--- NOTE | 2019-07-27 10:18 | ANES ---
Post Anesthesia Assessment - Vital Signs Vitals: Last Vital Signs Temp 36.5 C 07/27/19 10:15 Pulse 92 07/27/19 10:15 Resp 13 07/27/19 10:15 BP 150/63 H 07/27/19 10:15 Pulse Ox 97 07/27/19 10:15 Airway Patency: Normal - Mental Status Level Of Consciousness: Awake, Alert, Appropriate - Pain Level Pain Score: 0 - N/V Assessment Nausea/Vomiting Presence: None Dehydration:: No
[2019-07-27] MEDS: DEXTROSE 5%-LACTATED RINGERS 1,000 ML IV PRN ×2 (10:38→19:45)
[2019-07-27] MEDS: ceFAZolin SODIUM 1 GM in DEXTROSE 5 % IN WATER 100 ML IV SCH ×6 (12:15→23:33)
[2019-07-27] MEDS: oxyCODONE HCL/ACETAMINOPHEN 1 TAB TABLET PO PRN ×3 (12:16→21:44)
[2019-07-27] MEDS: SENNOSIDES/DOCUSATE SODIUM 1 TAB TABLET PO SCH (20:33)
[2019-07-27] MEDS: MONTELUKAST SODIUM 10 MG TABLET PO SCH (20:33)
[2019-07-27] MEDS: MORPHINE SULFATE 15 MG TABLET.SA PO SCH (20:33)
[2019-07-27] MEDS: FLUTICASONE PROPION/SALMETEROL 14 PUFF DISK.W.DEV IH SCH (20:33)
[2019-07-28] MEDS: oxyCODONE HCL/ACETAMINOPHEN 1 TAB TABLET PO PRN ×4 (05:34→19:56)
[2019-07-28 06:21] LABS: Hemoglobin 10.4 gm/dL (12.5-16.0); Mean Cell Volume 97.6 fl (78-100); Mean Corpuscular Hemoglobin 31.7 pg (27-31); Mean Corpuscular Hgb Conc 32.5 g/dl (32-36); Mean Platelet Volume 9.7 fl (8-12.5); Platelet Count 144 K/mm3 (150-450); Red Blood Count 3.28 M/mm3 (4.2-5.4); Red Cell Distribution Width 15.5 % (11.5-14.0); White Blood Count 3.6 K/mm3 (4.0-10.5)
[2019-07-28 06:30] LABS: Anion Gap 10.8 mmol/L (6.8-13.8); BUN/Creatinine Ratio 23.5 (9.0-21.6); Calcium * 8.8 mg/dL (7.9-10.9); Carbon Dioxide 26.7 mmol/L (24-32.6); Estimated Creat Clear 33.9; Potassium 4.5 mmol/L (3.4-4.6)
[2019-07-28] MEDS: PANTOPRAZOLE SODIUM 20 MG TABLET.DR PO SCH (06:42)
[2019-07-28] MEDS: FLUTICASONE PROPION/SALMETEROL 14 PUFF DISK.W.DEV IH SCH ×2 (08:32→21:10)
[2019-07-28] MEDS: GABAPENTIN 100 MG CAPSULE PO SCH (08:32)
[2019-07-28] MEDS: MULTIVITAMIN/IRON/FOLIC ACID 1 TAB TABLET PO SCH (08:32)
[2019-07-28] MEDS: MORPHINE SULFATE 15 MG TABLET.SA PO SCH ×2 (08:32→21:10)
[2019-07-28] MEDS: ALLOPURINOL 300 MG TABLET PO SCH (08:33)
[2019-07-28] MEDS: LISINOPRIL 20 MG TABLET PO SCH (08:33)
[2019-07-28] MEDS: ENOXAPARIN SODIUM 30 MG/0.3 ML SYRG SC SCH (08:33)
--- NOTE | 2019-07-28 12:23 | PN ---
Subjective - Date and Time Seen Date: 07/28/19 Time: 08:00 Subjective Narrative: Patient reports pain controlled at this time. Mild lightheadedness when she got up for therapy this morning. No nausea or vomiting. Good appetite. No complaints. Objective Objective Narrative: Up in chair. Sensation intact RLE. 5/5 PF/DF ankle. Calf supple. Bandages C/D/I. Drain intact. - Vitals Vitals: Last Vital Signs Temp 36.8 C 07/28/19 06:36 Pulse 84 07/28/19 08:33 Resp 18 07/28/19 06:36 BP 147/67 07/28/19 08:33 Pulse Ox 100 07/28/19 06:36 - Abnormal Lab Findings Abnormal Lab Findings: Abnormal Lab Results 07/28/19 07/28/19 Range/Units 06:10 06:10 WBC 3.6 L (4.0-10.5) K/mm3 RBC 3.28 L (4.2-5.4) M/mm3 Hgb 10.4 L (12.5-16.0) gm/dL Hct 32.0 L (37.0-47.0) % MCH 31.7 H (27-31) pg RDW 15.5 H (11.5-14.0) % Plt Count 144 L (150-450) K/mm3 Chloride 107 H (97-106) mmol/L BUN 28 H (3-23) mg/dL Est GFR (Non-Af Amer) 47 L D (60-130) mL/min BUN/Creatinine Ratio 23.5 H (9.0-21.6) - Exam Constitutional: Present: Alert, Oriented x3, Cooperative, No distress Cauti Physician Documentation - Urinary Catheter Management Urethral (Cifuentes) Date of Insertion: 07/27/19 Time of Insertion: 08:10 Assessment/Plan - Problems/Diagnosis (1) Status post total right knee replacement Problem: Acute Narrative: PT, pain control, anticoagulation, patient reports she has her son lined up to take her home tomorrow am to help her at home. (2) Acute blood loss anemia Problem: Acute Narrative: asymptomatic, observation (3) HTN (hypertension) Problem: Chronic (4) Hyperlipemia Problem: Chronic (5) GERD (gastroesophageal reflux disease) Problem: Chronic
[2019-07-28] MEDS: SENNOSIDES/DOCUSATE SODIUM 1 TAB TABLET PO SCH (21:11)
[2019-07-28] MEDS: MONTELUKAST SODIUM 10 MG TABLET PO SCH (21:11)
[2019-07-29] MEDS: oxyCODONE HCL/ACETAMINOPHEN 1 TAB TABLET PO PRN ×2 (02:50→10:55)
[2019-07-29] MEDS: PANTOPRAZOLE SODIUM 20 MG TABLET.DR PO SCH (06:37)
[2019-07-29 08:01] LABS: Hematocrit 31.4 % (37.0-47.0); Hemoglobin 9.9 gm/dL (12.5-16.0)
[2019-07-29] MEDS: FLUTICASONE PROPION/SALMETEROL 14 PUFF DISK.W.DEV IH SCH (08:13)
[2019-07-29] MEDS: LISINOPRIL 20 MG TABLET PO SCH (08:13)
[2019-07-29] MEDS: MULTIVITAMIN/IRON/FOLIC ACID 1 TAB TABLET PO SCH (08:13)
[2019-07-29] MEDS: MORPHINE SULFATE 15 MG TABLET.SA PO SCH (08:13)
[2019-07-29] MEDS: GABAPENTIN 100 MG CAPSULE PO SCH (08:13)
[2019-07-29] MEDS: ALLOPURINOL 300 MG TABLET PO SCH (08:14)
[2019-07-29] MEDS: ENOXAPARIN SODIUM 30 MG/0.3 ML SYRG SC SCH (08:14)
--- NOTE | 2019-07-29 12:14 | DS ---
(1) Status post total right knee replacement Problem: Acute (2) Acute blood loss anemia Problem: Suspected (3) HTN (hypertension) Problem: Chronic (4) Hyperlipemia Problem: Chronic (5) GERD (gastroesophageal reflux disease) Problem: Chronic Date of Discharge:: 07/29/19 Hospital Course: Ms. Welsh was admitted to the floor after undergoing right total knee arthroplasty. Tolerated this well. Was admitted to the floor postoperatively for 24 hours of IV antibiotics, pain control, medical comanagement, and occupational and physical therapy. OT and PT were consulted to assist with activities of daily living and ambulation. Was made weightbearing as tolerated with range of motion as tolerated. Pain was initially controlled with IV regimen. This was transitioned to oral once tolerating a by mouth intake. Was resumed on home diet and medications. Had a Cifuentes catheter inserted and the operating room which was discontinued on postoperative day 1. A drain was placed intraoperatively into the knee which was discontinued on postoperative day 1. Lovenox SCD and SALMA hose were utilized for DVT prophylaxis. Vital signs remained stable to the hospital course. Serial labs were obtained which showed a final hemoglobin of 9.9 grams. BMP was reviewed and was stable. Physical examination throughout the hospital course showed an extremity that had sensation that was intact to light touch, palpable pulses, a benign wound, motor intact to the toes, ankle, and knee. Knee range of motion was approximately 5 degrees to 70 degrees. Once an oral pain regimen was tolerated and physical therapy goals were met, it was felt that they were stable for discharge to home. Instructions: Continue with weightbearing as tolerated and range of motion as tolerated. It is OK to shower on the wound if it is not draining. If you note any drainage or for comfort you can cover with dry gauze and tape. Change every 2-3 days as needed. Continue with physical therapy. Resume home diet. Report any fever over 101.5 Fahrenheit, uncontrolled pain, increased drainage, foul odor of drainage, new or increased calf pain or shortness of breath, or any other significant complaints. A 325mg dialy aspirin will be started after finishing anticoagulation if not allergic. Continue with SALMA hose on the operative extremity until instructed otherwise. No driving until instructed otherwise. Follow up in approximately 10-14 days. Procedures Performed: see notes below List Procedures: Right total knee arthroplasty Results and Findings: Lab Pending Results 07/28/19 06:10: WBC 3.6 L, RBC 3.28 L, Hgb 10.4 L, Hct 32.0 L, MCV 97.6, MCH 31.7 H, MCHC 32.5, RDW 15.5 H, Plt Count 144 L, MPV 9.7 07/28/19 06:10: Sodium 140, Plasma Sodium 140, Potassium 4.5, Chloride 107 H, Carbon Dioxide 26.7, Anion Gap 10.8, BUN 28 H, Creatinine 1.19, Est GFR (Non-Af Amer) 47 L D, BUN/Creatinine Ratio 23.5 H, Random Glucose 102, Calcium 8.8 07/29/19 07:50: Hgb 9.9 L, Hct 31.4 L Discharge Location: Home Disposition: Home self-care Condition: Good Discharge Activity: Activity as tolerated, Weight bearing, Other - With wheeled walker Discharge Diet: General/regular food, Low salt, Low fat/chol Referrals: Dr. Edd [Other] Additional Patient Instructions (free text): Follow up with Orthopedic in Dr. Bryant office on SaturdayAugust 17 at 9:30 a.m. Physical Therapy at [facility] on July 29 at 12:30pm. Please fax demographics and PT order to [phone]. Prescriptions (Any new or edited meds): Multivitamin/Iron/Folic Acid [Certagen] 1 tab PO DAILY #30 tab Transmission Status: Received by [place], [place] Enoxaparin Sodium [Lovenox] 30 mg SC Q24H #7 disp.syrin [facility]: [facility] [place] Morphine Sulfate [Ms Contin] 15 mg PO Q12H #10 tablet.sa Transmission Status: [facility] [place] [place] oxyCODONE HCL/ACETAMINOPHEN [Percocet 5 MG/325 MG] 2 tab PO Q4H PRN #40 tab PRN Reason: Moderate Pain (Pain Scale 4-6) Transmission Status: Received by [place], [place] Sennosides/Docusate Sodium [Senokot-S] 2 tab PO HS #60 tab Transmission Status: [place] Complete Home Medications List: Complete Home Medication List: Lisinopril [Zestril] 20 mg PO DAILY 11/21/14 allopurinol 300 mg tablet 300 mg PO DAILY 01/13/19 fluticasone furoate 100 mcg-vilanterol 25 mcg/dose inhalation powder 1 inh IH DAILY 01/13/19 gabapentin 100 mg capsule 100 mg PO DAILY 01/13/19 montelukast 10 mg tablet 10 mg PO DAILY 01/13/19 omeprazole 20 mg capsule,delayed release 20 mg PO DAILY 01/13/19 Enoxaparin Sodium [Lovenox] 30 mg SC Q24H #7 disp.syrin 07/29/19 Morphine Sulfate [Ms Contin] 15 mg PO Q12H #10 tablet.sa 07/29/19 Multivitamin/Iron/Folic Acid [Certagen] 1 tab PO DAILY #30 tab 07/29/19 Sennosides/Docusate Sodium [Senokot-S] 2 tab PO HS #60 tab 07/29/19 oxyCODONE HCL/ACETAMINOPHEN [Percocet 5 MG/325 MG] 2 tab PO Q4H PRN #40 tab 07/29/19 Forms: Patient Portal Registration
[2019-07-29 14:37] VITALS: BP 135/90
== END 2019-07-29 14:00 | disposition home or self-care (01) | DRG 470 ==
LOC: MS 06:26 → EDSTATUS 08:00
PROVIDERS: ADMIT Orthopaedic Surgery; ATTEND Orthopaedic Surgery
DX: E78.5 Hyperlipidemia, unspecified; K21.9 Gastro-esophageal reflux disease without esophagitis; Z87.891 Personal history of nicotine dependence; J45.20 Mild intermittent asthma, uncomplicated; I10 Essential (primary) hypertension; D62 Acute posthemorrhagic anemia; M17.11 Unilateral primary osteoarthritis, right knee
CPT/HCPCS: 36415; 73560; 80048; 85014; 85018; 85027; 94660; 97110; 97112; 97116; 97161; 97165; 97535